=== PATIENT | female | born 1995 ===

== ENCOUNTER 2018-06-15 14:45 | Inpatient (IN) | payer OTHER ==
[~2018-06-15] VITALS: Ht 172.7 cm; Wt 83.5 kg
[2018-06-20] MEDS ORDERED: PRENATAL TABLE1 EAC1 PO (18:47)
== END 2018-06-23 14:56 | disposition home or self-care (01) | DRG 807 ==
LOC: LDR 06-20 17:49 → OB/GYN 06-21 13:10
PROC: 4A1HXCZ Monitoring of Products of Conception, Cardiac Rate, External Approach (ICD-10-PCS; 2018-06-20)
PROC: 10E0XZZ Delivery of Products of Conception, External Approach (ICD-10-PCS; principal; 2018-06-21)
PROC: 0HQ9XZZ Repair Perineum Skin, External Approach (ICD-10-PCS; 2018-06-21)
PROC: 3E033VJ Introduction of Other Hormone into Peripheral Vein, Percutaneous Approach (ICD-10-PCS; 2018-06-21)
DX: O70.1 Second degree perineal laceration during delivery (principal); Z37.0 Single live birth; Z3A.40 40 weeks gestation of pregnancy